=== PATIENT | male | born 1995 | race American Indian/Alaskan Native ===

== ENCOUNTER 2022-02-23 19:47 | Emergency (ER) | payer OTHER ==
[2022-02-23] MEDS ORDERED: HYDROcodone/ACETAMINOPHEN 5-325 MG TAB PO ONE (20:24)
--- NOTE | 2022-02-23 20:40 | Cat Scan Report ---
CT HEAD WITHOUT CONTRAST INDICATION / CLINICAL INFORMATION: Head injury. TECHNIQUE: All CT scans at this location are performed using CT dose reduction for ALARA by means of automated e xposure control. COMPARISON: None available. FINDINGS: HEMORRHAGE: No evidence of intracranial hemorrhage or extra-axial fluid collection. EXTRA-AXIAL SPACES: Cortical sulci, sylvian fissures and basilar cisterns have an unremarkable appear ance. VENTRICULAR SYSTEM: The third and lateral ventricles are of normal size and configuration. CEREBRAL PARENCHYMA: No areas of abnormal brain parenchymal attenuation are identified. There is no i ndication of recent infarction. MIDLINE SHIFT OR HERNIATION: There is no mass effect. CEREBELLUM / BRAINSTEM: Brainstem and cerebellum have an unremarkable appearance. MIDLINE STRUCTURES:No abnormalities of the pituitary gland or pineal region are identified. INTRACRANIAL VESSELS:No abnormalities are identified on this noncontrast head CT. ORBITS: visualized portions of the orbits have an unremarkable appearance. SOFT TISSUES of HEAD: There is a large scalp hematoma involving the right forehead. This extends back towards the right parietal region. CALVARIUM: Evaluation of bone windows reveals no abnormalities. PARANASAL SINUSES / MASTOID AIR CELLS: Visualized portions of the paranasal sinuses are free from inf lammatory mucosal disease. Mastoid air cells are normally pneumatized. IMPRESSION: 1. No significant intracranial abnormality. 2. Large right forehead scalp hematoma Signer Name: Luis Manuel Carver MD Signed: 02/23/2022 8:36 PM Workstation Name: [id number]
--- NOTE | 2022-02-23 20:44 | Cat Scan Report ---
CT MAXILLOFACIAL WITHOUT CONTRAST INDICATION / CLINICAL INFORMATION: Head and facial injury. TECHNIQUE: All CT scans at this location are performed using CT dose reduction for ALARA by means of automated e xposure control. COMPARISON: None available. FINDINGS: FACIAL BONES: No fracture or other significant abnormality. Soft tissue face: A large scalp hematoma is present involving the forehead to the right of midline. S oft tissue swelling extends down to the nasion but spares the preseptal orbits. ROTARY DRILLER PROSPECTING SPACES:Evaluation of the shaker flatwork space structures reveal no abnormalities. SALIVARY GLANDS: No abnormality PARANASAL SINUSES: Paranasal sinuses are free from inflammatory mucosal disease. NASAL CAVITY: No abnormality. ORBITS: Globes, optic nerves and extraocular muscles have an unremarkable appearance. TEMPORAL BONES:Visualized mastoid air cells and the middle ear cavities are normally pneumatized. VISUALIZED INTRACRANIAL STRUCTURES: Please refer to CT head report which is dictated separately. IMPRESSION: 1. No indication of facial fracture or other osseous abnormality. Signer Name: Luis Manuel Carver MD Signed: 02/23/2022 8:39 PM Workstation Name: [id number]
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
[2022-02-23 21:26] VITALS: BP 133/77
== END 2022-02-23 21:27 ==
LOC: ED 19:47
DX: S00.03XA Contusion of scalp, initial encounter (principal); J45.909 Unspecified asthma, uncomplicated; Y08.89XA Assault by other specified means, initial encounter; Y93.9 Activity, unspecified; Y92.89 Other specified places as the place of occurrence of the external cause; Y99.8 Other external cause status
CPT/HCPCS: 70450; 70486; 99284